=== PATIENT | female | born 1945 | race Caucasian/White ===

== ENCOUNTER → 2016-11-01 | Outpatient (CLI) | payer MEDICARE, OTHER ==
[2016-11-01 08:31] LABS: CHLORIDE,CL 107 mmol/L (98-110); SODIUM,NA 142 mmol/L (136-146)
--- NOTE | 2016-11-01 14:06 | CR ---
EXAMINATION: Left hip HISTORY: Pain COMPARISON: None TECHNIQUE: 2 views FINDINGS: Severe joint space narrowing is noted within the left hip with subchondral cystic change a nd sclerosis. Moderate osteophytes are noted along the femoral head. Bone mineralization otherwise a ppears normal. No acute osseous abnormality demonstrated. IMPRESSION: Advanced osteoarthritic changes and joint space narrowing within the left hip.
== END | disposition home or self-care (01) ==
LOC: MW.CHRC 07:49
PROVIDERS: ATTEND Family Medicine
DX: M25.552 Pain in left hip (principal); M25.852 Other specified joint disorders, left hip; M16.12 Unilateral primary osteoarthritis, left hip; I10 Essential (primary) hypertension; E78.00 Pure hypercholesterolemia, unspecified; F41.9 Anxiety disorder, unspecified
CPT/HCPCS: 36415; 73502-26-LT; 73502-LT; 80053; 80061; 99214

== ENCOUNTER → 2016-11-08 | Outpatient (CLI) | payer MEDICARE, OTHER ==
--- NOTE | 2016-11-08 16:55 | CR ---
EXAMINATION: Pelvis HISTORY: Left hip pain COMPARISON: 11/01/2016 TECHNIQUE: AP pelvis FINDINGS: Advanced osteoarthritic changes are noted within the left hip with severe joint space narr owing. Joint spaces within the right hip are grossly preserved. There is a trace subchondral scleros is. The SI joints are symmetric. Mild degenerative changes are noted within the lower lumbar spine. No fracture or acute osseous abnormality. IMPRESSION: 1. Advanced degenerative changes noted within the left hip.
== END ==
LOC: MW.CHORTHO 07:57
PROVIDERS: ATTEND Orthopaedic Surgery
DX: M25.552 Pain in left hip (principal)
CPT/HCPCS: 72170; 72170-26; 99203

== ENCOUNTER → 2016-11-12 | Outpatient (CLI) | payer MEDICARE, OTHER ==
[~2016-11-12] MED LIST: Bupivacaine 0.25% 10 ML SDV INJECT STA; Iopamidol 612 MG/ML 50 ML SDV IARTIC STA; Triamcinolone Acetonide 40 MG/ML 1 ML MDV INJECT STA
--- NOTE | 2016-11-12 11:34 | CR ---
EXAMINATION: Fluoro guided left hip injection. HISTORY: Pain FINDINGS: After written informed consent was obtained, under Fluoro guidance, using 1% lidocaine under aseptic conditions a 22-gauge spinal needle was introduced into the right hip joint. After confirmation wit h contrast 40 mg of Kenalog, 03 cc of Marcaine was injected into the joint. IMPRESSION: Successful Fluoro guided left hip joint steroid injection.
== END ==
LOC: MW.DI 08:59
PROVIDERS: ATTEND Orthopaedic Surgery
DX: M25.552 Pain in left hip (principal)
CPT/HCPCS: 20610; 77002; J3301; Q9967

== ENCOUNTER 2019-03-06 11:56 | Emergency (ER) | payer MEDICARE, OTHER ==
[2019-03-06] MEDS ORDERED: Aspirin 81 MG Tab.Chew PO ONE (12:17)
--- NOTE | 2019-03-06 12:26 | EDM.PDOC ---
<Margy Campoverde - Last Filed: 03/06/19 14:36> ED HPI GENERAL MEDICAL PROBLEM - General Chief Complaint: Cardiovascular Problem Stated Complaint: HYPERTENSION Time Seen by Provider: 03/06/19 12:04 Source of Information: Reports: Patient History Limitations: Reports: No Limitations - History of Present Illness INITIAL COMMENTS - FREE TEXT/NARRATIVE: HISTORY AND PHYSICAL: History of present illness: Patient is a 74-year-old female who presents for high blood pressure. She was at a screening health fair today and the nurse took her blood pressure there. Her reported blood pressure was 190's/100's. Patient reports that she is asymptomatic and would not have come into the ED today without the health screening nurse telling her to. Patient reports that she has a history of high blood pressure that was difficult to control in the past. She did not want to take her blood pressure medications anymore so she stopped taking them over a year ago and is choosing [facility] for treatment of her blood pressure. She states that she has her blood pressure medications at home but choses not to take them. She does not check her blood pressure regularly at home and she has not been to the doctors office in two years. She states that she has no other medical history and does not take any medications. Patient denies fever, chills, chest pain, shortness of breath, or cough. Denies headache, neck stiff ness, change in vision, syncope, or near syncope. Denies nausea, vomiting, abdominal pain, diarrhea, constipation, or dysuria. Has not noted any blood in urine or stool. Patient has been eating and drinking appropriately. Review of systems: As per history of present illness and below otherwise all systems reviewed and negative. Past medical history: As per history of present illness and as reviewed below otherwise noncontributory. Surgical history: As per history of present illness and as reviewed below otherwise noncontributory. Social history: See social history for further information Family history: As per history of present illness and as reviewed below otherwise noncontributory. Physical exam: General: Patient is alert, oriented, and in no acute distress. Patient sitting comfortably on exam table. HEENT: Atraumatic, normocephalic, pupils equal and reactive bilaterally, negative for conjunctival pallor or scleral icterus, mucous membranes moist, TMs normal bilaterally, throat clear, neck supple, nontender, trachea midline. No drooling or trismus noted. No meningeal signs. No hot potato voice noted. Lungs: Clear to auscultation, breath sounds equal bilaterally, chest nontender. Heart: S1S2, regular rate and rhythm without overt murmur Abdomen: Soft, nondistended, nontender. Negative for masses or hepatosplenomegaly. Negative for costovertebral tenderness. Pelvis: Stable nontender. Genitourinary: Deferred. Rectal: Deferred. Skin: Intact, warm, dry. No lesions or rashes noted. Extremities: Atraumatic, negative for cords or calf pain. Neurovascular unremarkable. +1 edema nonpitting in bilateral lower extremities. Neuro: Awake, alert, oriented. Cranial nerves II through XII unremarkable. Cerebellum unremarkable. Motor and sensory unremarkable throughout. Exam nonfocal. Notes: Dr. Paris verbally involved in patient care. EKG reviewed with Dr. Paris. Patient remains asymptomatic while in ED. Patient has blood pressure medications at home. Discussed taking them as prescribed and following up with her primary care provider. Patient states that she may not do this as she does not believe in taking pills. Discussed the importance of following up with her PCP. Voices understanding and is agreeable to plan of care. Denies any further questions or concerns at this time. Diagnostics: CXR, EKG, CBC, CMP, troponin, UA, BNP Therapeutics: Clonidine Prescription: None Impression: Hypertension Plan: 1. Take tylenol and ibuprofen as directed for pain and discomfort. Take medications as prescribed. 2. Follow up with primary care provider as discussed. Definitive disposition and diagnosis as appropriate pending reevaluation and review of above. - Related Data Allergies Allergy/AdvReac Type Severity Reaction Status Date / Time codeine Allergy Nausea Verified 03/06/19 12:06 Home Meds: Home Meds . [No Known Home Meds] 03/06/19 [History] Past Medical History Cardiovascular History: Reports: Hypertension - Infectious Disease History Infectious Disease History: Reports: None - Past Surgical History Female Surgical History: Reports: Other (See Below) Other Female Surgeries/Procedures: Patient states she has had a "bladder surgery" in the past. Social & Family History - Family History Family Medical History: Noncontributory - Tobacco Use Smoking Status *Q: Never Smoker ED ROS GENERAL - Review of Systems Review Of Systems: ROS reveals no pertinent complaints other than HPI. ED EXAM, GENERAL - Physical Exam Exam: See Below (see dictation) Course - Vital Signs Last Recorded V/S: Last Vital Signs Temp 36.2 C 03/06/19 12:07 Pulse 93 03/06/19 13:21 Resp 18 03/06/19 13:21 BP 181/117 H 03/06/19 14:52 Pulse Ox 96 03/06/19 13:21 - Orders/Labs/Meds Orders: Active Orders 24 hr Category Date Time Status EKG Documentation Completion [RC] STAT Care 03/06/19 12:15 Active Labs: Laboratory Tests 03/06/19 03/06/19 03/06/19 Range/Units 12:15 12:15 12:15 WBC 8.72 (4.0-11.0) K/uL RBC 4.66 (4.30-5.90) M/uL Hgb 13.4 (12.0-16.0) g/dL Hct 41.5 (36.0-46.0) % MCV 89.1 (80.0-98.0) fL MCH 28.8 (27.0-32.0) pg MCHC 32.3 (31.0-37.0) g/dL RDW Std Deviation 43.6 (28.0-62.0) fl RDW Coeff of Nacho 14 (11.0-15.0) % Plt Count 272 (150-400) K/uL MPV 10.00 (7.40-12.00) fL Neut % (Auto) 63.3 (48.0-80.0) % Lymph % (Auto) 26.3 (16.0-40.0) % [place] % (Auto) 8.4 (0.0-15.0) % Eos % (Auto) 1.4 (0.0-7.0) % Baso % (Auto) 0.6 (0.0-1.5) % Neut # (Auto) 5.5 (1.4-5.7) K/uL Lymph # (Auto) 2.3 (0.6-2.4) K/uL [place] # (Auto) 0.7 (0.0-0.8) K/uL Eos # (Auto) 0.1 (0.0-0.7) K/uL Baso # (Auto) 0.1 (0.0-0.1) K/uL Nucleated RBC % 0.0 /100WBC Nucleated RBCs # 0 K/uL Sodium 143 (136-145) mmol/L Potassium 3.9 (3.5-5.1) mmol/L Chloride 107 (98-107) mmol/L Carbon Dioxide 26.7 (21.0-32.0) mmol/L BUN 25 H (7.0-18.0) mg/dL Creatinine 0.6 (0.6-1.0) mg/dL Est Cr Clr Drug Dosing 63.09 mL/min Estimated GFR (MDRD) > 60.0 ml/min Glucose 103 (74-106) mg/dL Calcium 9.3 (8.5-10.1) mg/dL Total Bilirubin 0.3 (0.2-1.0) mg/dL AST 21 (15-37) IU/L ALT 26 (14-63) IU/L Alkaline Phosphatase 82 (46-116) U/L Troponin I < 0.050 (0.000-0.056) ng/mL B-Natriuretic Peptide 33 (<100) PG/ML Total Protein 7.7 (6.4-8.2) g/dL Albumin 3.9 (3.4-5.0) g/dL Globulin 3.8 (2.6-4.0) g/dL Albumin/Globulin Ratio 1.0 (0.9-1.6) Urine Color Urine Appearance Urine pH (5.0-8.0) Ur Specific [place] (1.001-1.035) Urine Protein (NEGATIVE) mg/dL Urine Glucose (UA) (NEGATIVE) mg/dL Urine Ketones (NEGATIVE) mg/dL Urine Occult Blood (NEGATIVE) Urine Nitrite (NEGATIVE) Urine Bilirubin (NEGATIVE) Urine Urobilinogen (<2.0) EU/dL Ur Leukocyte Esterase (NEGATIVE) Urine RBC (0-2/HPF) Urine WBC (0-5/HPF) Ur Epithelial Cells (NONE-FEW) Urine Bacteria (NEGATIVE) 03/06/19 Range/Units 13:55 WBC (4.0-11.0) K/uL RBC (4.30-5.90) M/uL Hgb (12.0-16.0) g/dL Hct (36.0-46.0) % MCV (80.0-98.0) fL MCH (27.0-32.0) pg MCHC (31.0-37.0) g/dL RDW Std Deviation (28.0-62.0) fl RDW Coeff of Nacho (11.0-15.0) % Plt Count (150-400) K/uL MPV (7.40-12.00) fL Neut % (Auto) (48.0-80.0) % Lymph % (Auto) (16.0-40.0) % [place] % (Auto) (0.0-15.0) % Eos % (Auto) (0.0-7.0) % Baso % (Auto) (0.0-1.5) % Neut # (Auto) (1.4-5.7) K/uL Lymph # (Auto) (0.6-2.4) K/uL [place] # (Auto) (0.0-0.8) K/uL Eos # (Auto) (0.0-0.7) K/uL Baso # (Auto) (0.0-0.1) K/uL Nucleated RBC % /100WBC Nucleated RBCs # K/uL Sodium (136-145) mmol/L Potassium (3.5-5.1) mmol/L Chloride (98-107) mmol/L Carbon Dioxide (21.0-32.0) mmol/L BUN (7.0-18.0) mg/dL Creatinine (0.6-1.0) mg/dL Est Cr Clr Drug Dosing mL/min Estimated GFR (MDRD) ml/min Glucose (74-106) mg/dL Calcium (8.5-10.1) mg/dL Total Bilirubin (0.2-1.0) mg/dL AST (15-37) IU/L ALT (14-63) IU/L Alkaline Phosphatase (46-116) U/L Troponin I (0.000-0.056) ng/mL B-Natriuretic Peptide (<100) PG/ML Total Protein (6.4-8.2) g/dL Albumin (3.4-5.0) g/dL Globulin (2.6-4.0) g/dL Albumin/Globulin Ratio (0.9-1.6) Urine Color YELLOW Urine Appearance CLEAR Urine pH 5.5 (5.0-8.0) Ur Specific [place] <= 1.005 (1.001-1.035) Urine Protein NEGATIVE (NEGATIVE) mg/dL Urine Glucose (UA) NEGATIVE (NEGATIVE) mg/dL Urine Ketones NEGATIVE (NEGATIVE) mg/dL Urine Occult Blood SMALL H (NEGATIVE) Urine Nitrite NEGATIVE (NEGATIVE) Urine Bilirubin NEGATIVE (NEGATIVE) Urine Urobilinogen 0.2 (<2.0) EU/dL Ur Leukocyte Esterase NEGATIVE (NEGATIVE) Urine RBC 0-2 (0-2/HPF) Urine WBC 0-2 (0-5/HPF) Ur Epithelial Cells FEW (NONE-FEW) Urine Bacteria FEW (NEGATIVE) Meds: Medications Discontinued Medications Generic Name Dose Route Start Last Admin Trade Name Freq PRN Reason Stop Dose Admin Aspirin 324 mg 03/06/19 12:17 03/06/19 12:24 Aspirin PO 03/06/19 12:18 324 mg ONETIME ONE Administration Clonidine HCl 0.1 mg 03/06/19 14:37 03/06/19 14:52 Catapres PO 03/06/19 14:38 0.1 mg ONETIME ONE Administration Clonidine HCl 0.1 mg 03/06/19 14:50 03/06/19 14:52 Catapres PO 03/06/19 14:51 Not Given ONETIME ONE Departure - Departure Time of Disposition: 14:43 Disposition: Home, Self-Care 01 Clinical Impression: Hypertension Qualifiers: Hypertension type: unspecified Qualified Code(s): I10 - Essential (primary) hypertension Instructions: Hypertension, [id number] Referrals: PCP,None [Primary Care Provider] - Forms: ED Department Discharge Additional Instructions: The following information is given to patients seen in the emergency department who are being discharged to home. This information is to outline your options for follow-up care. We provide all patients seen in our emergency department with a follow-up referral. The need for follow-up, as well as the timing and circumstances, are variable depending upon the specifics of your emergency department visit. If you don't have a primary care physician on staff, we will provide you with a referral. We always advise you to contact your personal physician following an emergency department visit to inform them of the circumstance of the visit and for follow-up with them and/or the need for any referrals to a consulting specialist. The emergency department will also refer you to a specialist when appropriate. This referral assures that you have the opportunity for follow-up care with a specialist. All of these measure are taken in an effort to provide you with optimal care, which includes your follow-up. Under all circumstances we always encourage you to contact your private physician who remains a resource for coordinating your care. When calling for follow-up care, please make the office aware that this follow-up is from your recent emergency room visit. If for any reason you are refused follow-up, please contact the [facility] Emergency Department at and asked to speak to the emergency department charge nurse. [facility] [address] [place] [address] [facility] [address] [place] [id number] 1. Take tylenol and ibuprofen as directed for pain and discomfort. Take medications as prescribed. 2. Follow up with primary care provider as discussed. - My Orders Last 24 Hours: My Active Orders 03/06/19 12:15 EKG Documentation Completion [RC] STAT - Assessment/Plan Last 24 Hours: My Active Orders 03/06/19 12:15 EKG Documentation Completion [RC] STAT <Rupali Armas - Last Filed: 03/06/19 15:03> ED HPI GENERAL MEDICAL PROBLEM - History of Present Illness INITIAL COMMENTS - FREE TEXT/NARRATIVE: I have personally seen patient and agree with the above note. Dr. Paris verbally involved as well as reviewed EKG with him. Patient remains asymptomatic while in ED. discussed plan of care with patient and she is agreeable to plan without any questions or concerns at this time.
[2019-03-06 13:08] LABS: CHLORIDE,CL 107 mmol/L (98-107); SODIUM,NA 143 mmol/L (136-145)
--- NOTE | 2019-03-06 13:37 | CR ---
INDICATION: Hypertension TECHNIQUE: Chest 1 view. COMPARISON: None FINDINGS: Cardiovascular and mediastinum: Heart size and vasculature are normal in caliber and appearance. Mediastinum is within normal limits. Lungs and pleural space: Lungs are clear. No sign of infiltrate or mass. No sign of pleural effusion. No pneumothorax. Bones and soft tissues: No significant findings. IMPRESSION: Unremarkable chest. Dictated by: Jovanny Wright MD @ 03/06/2019 13:36:29 (Electronically Signed)
[2019-03-06] MEDS ORDERED: cloNIDine 0.1 MG Tab PO ONE ×2 (14:37→14:50)
== END 2019-03-06 15:10 | disposition home or self-care (01) ==
LOC: MW.ED 11:56
DX: I10 Essential (primary) hypertension (principal); Z88.5 Allergy status to narcotic agent
CPT/HCPCS: 36415; 71045; 80053; 81001; 83880; 84484; 85025; 93005; 99284; A9270; 99283